=== PATIENT | female | born 1935 | race Caucasian/White ===

== ENCOUNTER → 2017-06-03 | Outpatient (REF) | payer MEDICAID, MEDICARE ==
[2017-06-03 14:19] LABS: FREE T3 3.3 PG/ML (2.2-4.0)
== END ==
LOC: M LAB REF 13:03
DX: E05.90 Thyrotoxicosis, unspecified without thyrotoxic crisis or storm (principal)
CPT/HCPCS: 84481

== ENCOUNTER 2018-11-21 13:35 | Emergency (ER) | payer MEDICARE, MEDICAID, OTHER ==
[~2018-11-21] VITALS: Ht 154.9 cm; Wt 59.5 kg
[2018-11-21] MEDS ORDERED: ALBU8.5H (13:45)
[2018-11-21] MEDS ORDERED: ALEN70TA74 (13:45)
[2018-11-21] MEDS ORDERED: ADV500INH (13:45)
[2018-11-21] MEDS ORDERED: SIMV20TA2 (13:45)
[2018-11-21] MEDS ORDERED: ADACEL/BOOSTRIX VACCINE (DIPHTH/PERTUSS/ACELL/TETANUS)0.5ML SYR (90715) IM ONE (15:30)
--- NOTE | 2018-11-21 15:46 | REP ---
Clinical: Dog bite. Technique: AP and lateral views of the right forearm. Findings: Soft tissue swelling is appreciated without subcutaneous emphysema or foreign body. Osseous structures are intact without evidence for injury. Impression: Soft-tissue swelling. Electronically Signed by Mihir Grey MD 11/21/2018 03:37 P
[2018-11-21] MEDS ORDERED: AUGM875T28 PO (16:16)
[2018-11-21 16:28] VITALS: BP 125/58
== END 2018-11-21 16:29 | disposition home or self-care (01) ==
LOC: M ED 13:35
DX: S51.851A Open bite of right forearm, initial encounter (principal); W54.0XXA Bitten by dog, initial encounter; Y92.89 Other specified places as the place of occurrence of the external cause; J44.9 Chronic obstructive pulmonary disease, unspecified; Z79.899 Other long term (current) drug therapy

== ENCOUNTER 2019-06-27 14:36 | Outpatient (RCR) | payer MEDICAID, MEDICARE, OTHER, SELFPAY ==
[~2019-06-27] VITALS: Ht 154.9 cm; Wt 60.0 kg
[~2019-06-27 14:36] MED LIST: ADV500INH; ALBU8.5H; ALEN70TA74; AUGM875T28 PO; SIMV20TA22
[2019-06-27] MEDS ORDERED: ASPI81TA85 PO (15:43)
[2019-06-27] MEDS ORDERED: ADV500INH INH (15:43)
== END 2019-07-24 ==
LOC: M PR 14:36
PROVIDERS: ATTEND Internal Medicine Pulmonary Disease
DX: J44.9 Chronic obstructive pulmonary disease, unspecified (principal)

== ENCOUNTER 2020-10-26 20:58 | Emergency (ER) | payer MEDICARE, MEDICAID, OTHER ==
[~2020-10-26] VITALS: Ht 154.9 cm; Wt 62.5 kg
[~2020-10-26 20:58] MED LIST changes: +ADV500INH INH; -ALEN70TA74; +ALEN70TA82; +ASPI81TA86 PO
[2020-10-26] MEDS ORDERED: SYMB16INH INH (21:06)
--- NOTE | 2020-10-26 23:25 | REPVR ---
PROCEDURE INFORMATION: Exam: XR Orthopantogram Exam date and time: 10/26/2020 10:45 PM Age: 85 years old Clinical indication: Jaw pain; Additional info: Severe right tmj/mandibular pain TECHNIQUE: Imaging protocol: XR orthopantogram (panoramic view of the upper and lower jaws). COMPARISON: No relevant prior studies available. FINDINGS: Sinuses: No fluid level or opacification involving the imaged paranasal sinuses. Bones/joints: No asymmetric malalignment of the TMJs. There may be degenerative osteoarthrosis changes of the right TMJ particularly. No fracture or destructive process involving the mandible. Patient is edentulous, with 2 dental implants in the paramedian lower mandible Soft tissues: Unremarkable. IMPRESSION: No acute or destructive process. 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 Electronically signed by: Cr Shoemaker On 10/26/2020 23:24:51 PM
[2020-10-26] MEDS ORDERED: KETOROLAC 30 MG/ML 1ML VIAL IV ONE (23:55)
[2020-10-27] MEDS ORDERED: ISOVUE-370 76% 100ML VIAL As Ordered ONE (00:02)
--- NOTE | 2020-10-27 00:29 | REPVR ---
PROCEDURE INFORMATION: Exam: CT Maxillofacial With Contrast Exam date and time: 10/26/2020 12:18 AM Age: 85 years old Clinical indication: Jaw pain; Prior surgery; Surgery date: 1-6 months; Surgery type: Teeth removed; Additional info: Right facial swelling TECHNIQUE: Imaging protocol: Computed tomography images of the face with intravenous contrast. Radiation optimization: All CT scans at this facility use at least one of these dose optimization techniques: automated exposure control; mA and/or kV adjustment per patient size (includes targeted exams where dose is matched to clinical indication); or iterative reconstruction. Contrast material: ISOVUE 370; Contrast volume: 75 ml; Contrast route: INTRAVENOUS (IV); COMPARISON: PX [facility] orthopantogram 10/26/2020 10:38 PM FINDINGS: No focal subcutaneous soft tissue swelling. Parapharyngeal and posterior nasopharynx soft tissue planes are symmetric. No asymmetric enlargement or inflammation of the pharyngeal tonsils. Vascular structures of the neck enhance normally. No abnormally enlarged cervical chain or jugulodigastric lymph nodes. Muscles of mastication and strap muscles of the neck appear normal. Parotid and minor salivary glands are unremarkable. Floor of the mouth and tongue base soft tissues appear normal. Imaged laryngeal structures appear normal. Asymmetric fluid within the right vallecula measuring 7 x 7 x 10 mm Multi-level cervical degenerative disc and articular pillar arthropathy is present. Patient is nearly edentulous, with 2 paramedian mandibular implants present. No abnormal lucency at the interface between the implant and adjacent bone IMPRESSION: No explanation for right facial swelling. No for inflammatory process, mass or fluid collection. Likely incidental fluid within the right vallecula at the hyoid bone level. Electronically signed by: Cr Shoemaker On 10/27/2020 00:28:33 AM
[2020-10-27 02:21] VITALS: BP 131/76
--- NOTE | 2020-10-27 06:15 | ED PDOC ---
Post-Departure Follow-Up ct max fac faxed to dr weber for fu Denisse Hayward MD Oct 27, 2020 06:15
== END 2020-10-27 02:24 | disposition home or self-care (01) ==
LOC: M ED 20:58
DX: M26.601 Right temporomandibular joint disorder, unspecified (principal); E78.5 Hyperlipidemia, unspecified; J44.9 Chronic obstructive pulmonary disease, unspecified; Z79.82 Long term (current) use of aspirin; Z79.899 Other long term (current) drug therapy
CPT/HCPCS: 70355; 70487; 80047; 96374; 99284; J1885; Q9967

== ENCOUNTER → 2020-12-18 | Outpatient (CLI) | payer MEDICARE, MEDICAID ==
[~2020-12-18] MED LIST changes: +SYMB16INH INH
--- NOTE | 2020-12-18 13:59 | REP ---
INDICATION: COPD COMPARISON: None. TECHNIQUE: Standard helical technique without intravenous contrast administration FINDINGS: There is no evidence of mediastinal or hilar adenopathy. There are no pleural or pericardial effusions. Motion artifact obscures the imaged upper abdomen. No gross abnormalities are identified. Chronic changes are seen involving the imaged spine. There is a grade 1 superior endplate compression fracture of L2. Evaluation of the lung mathias shows a spiculated mass in the anterior segment of the left upper lobe which measures3.1 x 1.9 x 1.9 cm. A small asymmetric density is seen in the superior lingula having an extremely dense center consistent with a fiducial marker. Respiratory motion artifact obscures multiple lung base images. There is cylindrical bronchiectasis and lung field hyperexpansion. Scattered parenchymal bulla are also noted. IMPRESSION: 1. Large left upper lobe mass as described above. This is consistent with neoplasm. I have no priors for comparison. PET-CT and or tissue sampling is recommended as per the revised Fleischner society criteria. 2. Chronic lung field changes and other findings as described above. <Electronically signed by Ray Santana > 12/18/20 [id number]
== END ==
LOC: M PLAIMG 12:17
PROVIDERS: ATTEND Internal Medicine Pulmonary Disease
DX: J44.9 Chronic obstructive pulmonary disease, unspecified (principal); R91.8 Other nonspecific abnormal finding of lung field; J47.9 Bronchiectasis, uncomplicated

== ENCOUNTER → 2021-01-20 | Outpatient (CLI) | payer MEDICARE, MEDICAID ==
[2021-01-20 13:23] LABS: PLATELET COUNT, AUTOMATED 175 10^3/uL (150-450)
[2021-01-20 13:46] LABS: PROTHROMBIN TIME 13.6 SECONDS (12.7-14.5)
[2021-01-20 13:47] LABS: PARTIAL THROMBOPLASTIN TIME 37.3 SECONDS (25.9-37.0)
== END ==
LOC: M PLALAB 10:00
PROVIDERS: ATTEND Internal Medicine Pulmonary Disease
DX: R91.1 Solitary pulmonary nodule (principal)

== ENCOUNTER → 2021-01-26 | Outpatient (CLI) | payer MEDICARE, MEDICAID ==
[~2021-01-26] MED LIST changes: +ACET650T61 PO; -ALBU8.5H; +ALBU8.5H INH; +BUDE10.7 INH; +ECOT81TA5 PO; +HOME MED LIST COMPLETE! XX SCH; +LIDOCAINE 1% MDV 20ML VIAL As Ordered ONE; +OMEP1CAP73 PO; -SIMV20TA22; +SIMV20TA22 PO; +SODIUM BICARBONATE 8.4% INJ 50MEQ 50 ML VIAL As Ordered ONE
--- NOTE | 2021-01-26 09:44 | REP ---
INDICATION: POST LEFT LUNG BIOPSY, 1 VIEW, PA INSPIRATION. COMPARISON: Comparison chest x-ray May 14, comparison chest x-ray August 29, 2017. TECHNIQUE: Upright PA chest radiograph. FINDINGS: Patient is status post CT guided needle biopsy on the left. A left perihilar nodule is present. This was the biopsy target. There is a tiny sliver of left apical pleural air indicating a very small post procedure pneumothorax. There is evidence of a hiatal hernia behind the heart. Minimal linear fibrosis is seen in in the bases. IMPRESSION: Tiny left apical post biopsy pneumothorax. Recommend 2 hour follow-up radiograph. <Electronically signed by Kevin Motta > 01/26/21 [id number]
[2021-01-26 11:30] VITALS: BP 119/62
--- NOTE | 2021-01-26 11:52 | REP ---
INDICATION: POST LEFT LUNG PNEUMO, 1 VIEW. COMPARISON: Comparison is made with the initial post biopsy chest x-ray from 01/22 5 a.m.. TECHNIQUE: PA chest x-ray 11:45 a.m.. FINDINGS: There is a tiny sliver of apical pleural air visible at the medial apex. This is decreased in size from the 01/22 5 a.m. film. The chest x-ray is otherwise unchanged. No other complication seen. IMPRESSION: Tiny left apical pneumothorax improved from the earlier film. <Electronically signed by Kevin Motta > 01/26/21 [id number]
--- NOTE | 2021-01-26 15:22 | REP ---
INDICATION: LT UPPER LOBE MASS. COMPARISON: None. TECHNIQUE: The procedure is performed by Nelia Reynolds [facility], under the direct supervision of Dr. Motta. The risks and benefits of the procedure were explained to the patient and informed consent was obtained both orally and written. Directly prior to the start of the procedure, a formal timeout was done in the exam room. The left upper lobe lung mass was localized using CT guidance. Skin was prepped and draped in the usual sterile fashion. Six ml of buffered lidocaine was used as a local anesthetic. FINDINGS: Using CT guidance a 19/20 gauge coaxial needle biopsy system was inserted and advanced into the nodule. Four core biopsy samples were obtained and sent to the lab. CT images obtained directly after the biopsy show showed evidence of a small pneumothorax. The pneumothorax thorax was followed by serial chest x-rays, after the appropriate amount of monitored convalescence the patient was discharged from the department. IMPRESSION: CT-guided left upper lobe lung biopsy. <Electronically signed by Nelia Reynolds > 01/26/21 1505 <Electronically signed by Kevin Motta > 01/26/21 1516
== END ==
LOC: M IRPRO 07:58
PROVIDERS: ATTEND Internal Medicine Pulmonary Disease
DX: C34.12 Malignant neoplasm of upper lobe, left bronchus or lung (principal); J95.811 Postprocedural pneumothorax

== ENCOUNTER → 2021-02-13 | Outpatient (CLI) | payer MEDICARE, MEDICAID ==
[~2021-02-13] MED LIST changes: -HOME MED LIST COMPLETE! XX SCH; -LIDOCAINE 1% MDV 20ML VIAL As Ordered ONE; -SODIUM BICARBONATE 8.4% INJ 50MEQ 50 ML VIAL As Ordered ONE
--- NOTE | 2021-02-13 14:48 | RADONC.CN ---
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 She is s/p biopsy on 01/26/21 and has a PET-CT to complete staging pending on 02/23/21. She has been referred for consideration of SBRT. Diagnosis/Treatment History Oncologic History Referred to pulmonology by Dr. Best Riojas for management of her COPD and history of latent TB. Dr. Silver ordered a CT chest to evaluate her lung mathias done on 12/18/20 which showed a spiculated primary lung lesion in the MARIAH 3 cm in maximal dimension. She was referred for CT biopsy which was done on 01/26/21 with pathology revealing SCC (markers pending). She was deemed inoperable due to her COPD. A PET-CT has been ordered and will be completed on 02/23/21 PFTs 01/02/21 FVC 1.31 FEV1 0.79 FEV/FVC 60% Severe COPD Interval History Janice reports that she has NOGUEIRA and cough, productive of clear to yellow sputum. She has no CP or hemoptysis. She has good appetite and stable weight. She is a and lives alone. No longer smokes. Past Medical History: COPD Latent TB HPL Arthritis Osteoporosis Past Surgical History: Cataracts Tonsillectomy Family History: Father stomach cancer Mother lung cancer Social History: 60 pack year former smoker quit 2018 Does not drink Allergies / Meds Allergies: Coded Allergies: No Known Allergies (Unverified , 11/21/18) Home Meds Reported Medications Acetaminophen (Tylenol Arthritis) 650 Mg Tablet.er, 650 MG PO Q8H PRN for PAIN LEVEL 1-4 01/26/21 Aspirin (Ecotrin) 81 Mg Tablet.dr, 81 MG PO QPM 01/26/21 Budesonide/Glycopyr/Formoterol (Breztri Aerosphere Inhaler) 160 Mcg-9 Mcg-4.8 Mcg/Actuation Hfa.aer.ad, 2 PUFFS INH BID 01/23/21 Omeprazole (Omeprazole) 20 Mg Capsule.dr, 20 MG PO QPM 01/23/21 Albuterol Sulfate (Albuterol Sulfate Hfa) 8.5 Gm Hfa.aer.ad, 2 PUFFS INH QID PRN for SOB/WHEEZING 11/21/18 Simvastatin (Simvastatin) 20 Mg Tablet, 20 MG PO QPM 11/21/18 Review of Systems Constitutional: Denies: Chills, Fatigue, Weight Loss Eyes: Denies: Pain HEENT: Denies: Head Aches Skin: Denies: Rash Pulmonary: Reports: Dyspnea, Cough; Denies: Pleuritic Chest Pain Cardiovascular: Denies: Chest Pain, Edema Gastrointestinal: Denies: Abdominal Pain Musculoskeletal: Reports: Other (Right jaw pain); Denies: Neck pain, Arm pain Neurological: Denies: Weakness, Numbness Psych: Reports: Mood Normal Vital Signs Ht 62" Wt 139 lbs BMI 26 T 97.7 P 89 RR 18 BP 124/71 O2 94% Pain 0 Fatigue 0 General Exam: Alert, Cooperative, No Acute Distress Eye Exam: PERRLA, EOMI Neck Exam: Supple Chest Exam: Clear to auscultation, Wheezing (Throughout faint wheezes) Heart Exam: Rate Normal, Regular Rhythm Abdomen Exam: Soft Extremity Exam: Negative: Edema Neuro Exam: Normal Gait, Normal Speech, Cranial Nerves 3-12 NL Psych Exam: Mental status NL Diagnostic and Laboratory Diagnostic Review Radiologic images, relevant labs and pathology reports were personally reviewed and discussed with Ms. Arce. Assessment and Plan Impression Ms. Arce is a 85 year old female former smoker with a recently diagnosed [id number] stage IA3 NSCLC of the MARIAH. She is s/p biopsy on 01/26/21 and has a PET- CT to complete staging pending on 02/23/21. She has been referred for consideration of SBRT. Stage MARIAH NSCLC [id number] stage IA3 Performance Status ECOG 1 Plan We had an extensive discussion with Ms. Arce regarding the diagnosis at hand and available therapeutic options. I reviewed her imaging with her which shows a 3 cm solitary MARIAH lesion. This is a good SBRT target given its peripheral location. She has severe COPD and is thus not a surgical candidate. For treatment I recommend SBRT 60 Gy in 5 fractions with 4DCT/ITV/DCA planning. I discussed that I will await the PET-CT (which will complete staging) before proceeding with simulation. I will call her with the results once the study is obtained. I think the likelihood of occult stephanie metastasis is low, but entirely worth vetting before we proceed. We discussed the logistics of receiving radiation therapy in detail including the need for a 1-time planning session. This can occur the same week as the PET- CT. We reviewed the side effects of treatment including fatigue, and 5-10% risk of clinical pneumonitis, and late fibrosis. After discussing the risks, benefits and alternatives to radiation therapy, Ms. Arce was amenable to pursuing radiotherapy. All questions were answered to the patient's satisfaction. We instructed the patient that if there were any questions,concerns or changes in clinical status in the interim to contact us. Recommendations SBRT 60 Gy in 5 fractions as described above Simulation week of 02/23/21, after PET-CT Billing Statement Total time of [46] minutes was spent preparing for the visit [3], obtaining HPI [10], examining the patient [3], reviewing diagnostic tests [4], discussing management options [16], coordinating care [2], and writing this note [8]. KEITH SIMMS MD Feb 13, 2021 14:48
== END ==
LOC: M ONCR 12:47
PROVIDERS: ATTEND General Practice
DX: C34.12 Malignant neoplasm of upper lobe, left bronchus or lung (principal); J44.9 Chronic obstructive pulmonary disease, unspecified; Z22.7 Latent tuberculosis; Z79.82 Long term (current) use of aspirin; Z79.899 Other long term (current) drug therapy; Z87.891 Personal history of nicotine dependence

== ENCOUNTER → 2021-02-23 | Outpatient (CLI) | payer MEDICARE, MEDICAID ==
--- NOTE | 2021-02-24 09:04 | REP ---
INDICATION: INITIAL STAGING MALIGNANT NEOPLASM C34.12. COMPARISON: Prior CT of the chest 12/18/2020. No prior PET CTs for comparison. TECHNIQUE: After the intravenous administration of 8.90 mCi of FDG 18 triplane whole-body PET-CT was performed from the skull base to the mid thigh. FINDINGS: The spiculated lesion seen in the left lung upper lobe is hypermetabolic with a maximal SUV value of 9.32. There is a focus of hypermetabolic activity seen in the left latissimus Gonzalez muscle at the level of the inferior tip of the medial border of the scapula. This is likely secondary to increased uptake from insufficient post injection resting. There are no other areas of abnormal hypermetabolic activity seen in the neck, chest, abdomen, or pelvis. IMPRESSION: The spiculated lung lesions seen the left upper lobe is hypermetabolic as described above consistent with neoplasm. <Electronically signed by Ray Santana > 02/24/21 0900
== END ==
LOC: M PLARAD 08:48
PROVIDERS: ATTEND Internal Medicine Pulmonary Disease
DX: C34.12 Malignant neoplasm of upper lobe, left bronchus or lung (principal)
CPT/HCPCS: 78815; A9552

== ENCOUNTER 2021-03-13 12:10 | Outpatient (RCR) | payer MEDICARE, MEDICAID | END 2021-03-24 | LOC: M ONCR 12:10 | PROVIDERS: ATTEND General Practice | DX: C34.12 Malignant neoplasm of upper lobe, left bronchus or lung (principal) ==

== ENCOUNTER → 2021-06-03 | Outpatient (CLI) | payer MEDICARE, MEDICAID ==
[2021-06-03 14:06] LABS: ALBUMIN 3.7 GM/DL (3.2-5.2); ALT/SGPT 21 U/L (12-78); BILIRUBIN,TOTAL 0.4 MG/DL (0.2-1.0); BLOOD UREA NITROGEN 19 MG/DL (7-18); CALCIUM LEVEL 9.3 MG/DL (8.8-10.2); CARBON DIOXIDE LEVEL 26 MEQ/L (21-32); CHLORIDE LEVEL 109 MEQ/L (98-107); CREATININE FOR GFR 0.94 MG/DL (0.55-1.30); GLOMERULAR FILTRATION RATE > 60.0 (>32); GLUCOSE, FASTING 81 MG/DL (70-100); SODIUM LEVEL 143 MEQ/L (136-145); TOTAL PROTEIN 7.3 GM/DL (6.4-8.2)
== END ==
LOC: M ONCR 13:10
PROVIDERS: ATTEND General Practice
DX: C34.12 Malignant neoplasm of upper lobe, left bronchus or lung (principal)

== ENCOUNTER → 2021-06-08 | Outpatient (CLI) | payer MEDICARE, MEDICAID ==
[~2021-06-08] MED LIST changes: +ISOVUE-370 76% 100ML VIAL As Ordered ONE
== END ==
LOC: M RAD 14:55
PROVIDERS: ATTEND General Practice
DX: C34.12 Malignant neoplasm of upper lobe, left bronchus or lung (principal); J43.9 Emphysema, unspecified
CPT/HCPCS: 71260; Q9967

== ENCOUNTER → 2021-07-01 | Outpatient (CLI) | payer MEDICARE, MEDICAID ==
[~2021-07-01] MED LIST changes: -ISOVUE-370 76% 100ML VIAL As Ordered ONE
== END ==
LOC: M ONCR 09:48
PROVIDERS: ATTEND General Practice
DX: C34.12 Malignant neoplasm of upper lobe, left bronchus or lung (principal); J44.9 Chronic obstructive pulmonary disease, unspecified; Z79.82 Long term (current) use of aspirin; Z79.899 Other long term (current) drug therapy; Z87.891 Personal history of nicotine dependence; Z92.3 Personal history of irradiation

== ENCOUNTER → 2021-10-08 | Outpatient (CLI) | payer MEDICARE, MEDICAID ==
[~2021-10-08] MED LIST changes: +GABA-1171 PO
== END ==
LOC: M WUC 10:19
PROVIDERS: ATTEND Nurse Practitioner Adult Health
DX: R07.89 Other chest pain (principal); R91.8 Other nonspecific abnormal finding of lung field; Z92.3 Personal history of irradiation

== ENCOUNTER 2021-11-24 21:02 | Inpatient (IN) | payer MEDICARE, MEDICAID ==
[~2021-11-24] VITALS: Ht 157.5 cm; Wt 65.0 kg
[2021-11-24 21:28] LABS: BASO % 0.6 % (0.0-1.0); EOS # 0.2 10^3/uL (0.0-0.5); EOS % 4.7 % (0.0-3.0); HEMOGLOBIN 12.1 g/dl (12.0-15.5); LYMPH # 1.1 10^3/uL (1.5-5.0); LYMPH % 20.7 % (24.0-44.0); MEAN CORPUSCULAR HEMOGLOBIN 29.9 pg (27.0-33.0); MEAN CORPUSCULAR HGB CONC 32.7 g/dl (32.0-36.5); MEAN CORPUSCULAR VOLUME 91.4 fl (80.0-96.0); MONO # 0.6 10^3/uL (0.0-0.8); NEUTROPHILS # 3.2 10^3/uL (1.5-8.5); NEUTROPHILS % 62.4 % (36.0-66.0); PLATELET COUNT, AUTOMATED 189 10^3/uL (150-450); RED BLOOD COUNT 4.05 10^6/uL (4.00-5.40); WHITE BLOOD COUNT 5.1 10^3/uL (4.0-10.0)
[2021-11-24 21:37] LABS: INR 0.97; PROTHROMBIN TIME 13.3 SECONDS (12.7-14.5)
[2021-11-24 21:38] LABS: PARTIAL THROMBOPLASTIN TIME 32.5 SECONDS (25.9-37.0)
[2021-11-24 21:47] LABS: ALBUMIN 3.3 GM/DL (3.2-5.2); ALT/SGPT 21 U/L (12-78); BILIRUBIN,DIRECT < 0.1 MG/DL (0.0-0.2); BILIRUBIN,TOTAL 0.3 MG/DL (0.2-1.0); BLOOD UREA NITROGEN 17 MG/DL (7-18); CALCIUM LEVEL 9.1 MG/DL (8.8-10.2); CARBON DIOXIDE LEVEL 24 MEQ/L (21-32); CHLORIDE LEVEL 111 MEQ/L (98-107); CREATININE FOR GFR 1.01 MG/DL (0.55-1.30); GLOMERULAR FILTRATION RATE 55.6 (>32); GLUCOSE, FASTING 95 MG/DL (70-100); SODIUM LEVEL 142 MEQ/L (136-145)
[2021-11-24 21:48] LABS: MB/CK RELATIVE INDEX 1.6 (< OR =4)
[2021-11-24] MEDS: fentaNYL 100 MCG/2 ML INJECTION IV PRN ×2 (21:54→22:28)
[2021-11-24 22:06] LABS: RSV AMPLIFICATION NEGATIVE (NEGATIVE)
[2021-11-24] MEDS ORDERED: GABA-1171 PO (23:51)
[2021-11-24] MEDS ORDERED: ASPI-161 PO (23:51)
[2021-11-24] MEDS ORDERED: MULTCHW12 PO (23:51)
[2021-11-24] MEDS ORDERED: COMBAER6 INH (23:51)
[2021-11-24] MEDS ORDERED: HOME MED LIST COMPLETE! XX SCH (23:55)
[2021-11-25] VITALS (8 sets, daily range): BP systolic 118–160; BP diastolic 66–88
[2021-11-25] MEDS ORDERED: HEPARIN SOD (PORCINE) 5000UNITS/ML 1ML VIAL/SYRINGE SC ONE (00:25)
[2021-11-25] MEDS: LR 1,000 ML IV SCH ×2 (00:25→13:45)
[2021-11-25] MEDS: HYDROMORPHONE HCL 0.5 MG/ 0.5 ML SYRINGE (J1170 PER 1) IV PRN ×6 (00:51→22:01)
[2021-11-25 06:34] LABS: BASO % 0.2 % (0.0-1.0); EOS # 0.1 10^3/uL (0.0-0.5); EOS % 0.7 % (0.0-3.0); HEMATOCRIT 34.2 % (36.0-47.0); HEMOGLOBIN 10.9 g/dl (12.0-15.5); LYMPH # 0.6 10^3/uL (1.5-5.0); LYMPH % 7.1 % (24.0-44.0); MEAN CORPUSCULAR HEMOGLOBIN 29.1 pg (27.0-33.0); MEAN CORPUSCULAR HGB CONC 31.9 g/dl (32.0-36.5); MEAN CORPUSCULAR VOLUME 91.2 fl (80.0-96.0); MONO # 0.6 10^3/uL (0.0-0.8); MONO % 6.5 % (2.0-8.0); NEUTROPHILS # 7.5 10^3/uL (1.5-8.5); PLATELET COUNT, AUTOMATED 164 10^3/uL (150-450); RED BLOOD COUNT 3.75 10^6/uL (4.00-5.40); WHITE BLOOD COUNT 8.8 10^3/uL (4.0-10.0)
[2021-11-25 06:47] LABS: BLOOD UREA NITROGEN 17 MG/DL (7-18); CALCIUM LEVEL 8.6 MG/DL (8.8-10.2); CARBON DIOXIDE LEVEL 26 MEQ/L (21-32); CHLORIDE LEVEL 108 MEQ/L (98-107); CREATININE FOR GFR 0.76 MG/DL (0.55-1.30); GLOMERULAR FILTRATION RATE > 60.0 (>32); GLUCOSE, FASTING 131 MG/DL (70-100); POTASSIUM SERUM 4.1 MEQ/L (3.5-5.1); SODIUM LEVEL 140 MEQ/L (136-145)
[2021-11-25] MEDS: TIOTROPIUM INHALER/CAPSULE (SPIRIVA) INH SCH (08:00)
[2021-11-25] MEDS: PANTOPRAZOLE 40MG VIAL IV SCH (09:28)
[2021-11-25] MEDS ORDERED: IPRATROPIUM 0.5MG/ALBUTEROL 2.5MG INH SOL UD 3ML (DUONEB) NEB PRN (10:20)
[2021-11-25] MEDS: SYMBICORT 160/4.5MCG INHALER 6GM INH SCH ×2 (10:36→19:16)
[2021-11-25] MEDS ORDERED: ONDANSETRON 4MG 2ML VIAL IV PRN ×3 (15:45→23:30)
[2021-11-25] MEDS ORDERED: MIDAZOLAM INJ 2MG/2ML VIAL (J2250 PER 1MG) As Ordered ONE (16:14)
[2021-11-25] MEDS ORDERED: fentaNYL 100 MCG/2 ML INJECTION As Ordered ONE (16:14)
[2021-11-25] MEDS ORDERED: propofoL 200 MG/20 ML VIAL As Ordered ONE ×2 (16:22→18:45)
[2021-11-25] MEDS ORDERED: LIDOCAINE 2% 100MG/5ML SDV (FOR ANES.) As Ordered ONE (16:23)
[2021-11-25] MEDS ORDERED: KETAMINE HCL 200 MG/20 ML VIAL As Ordered ONE (17:03)
[2021-11-25] MEDS ORDERED: ceFAZolin 2 GM/D5W 50 ML IV BAG (J0690 PER 500MG) As Ordered ONE (17:04)
[2021-11-25] MEDS ORDERED: TRANEXAMIC ACID 100 MG/ML 10ML VIAL As Ordered ONE (17:04)
[2021-11-25] MEDS ORDERED: PHENYLephrine 500MCG 5ML (100MCG/ML) SYRINGE As Ordered ONE ×2 (17:28→18:54)
[2021-11-25] MEDS ORDERED: ePHEDrine SULFATE 25 MG/5 ML(5MG/ML) SYRINGE As Ordered ONE ×2 (18:11→18:54)
[2021-11-25] MEDS ORDERED: ONDANSETRON 4MG 2ML VIAL As Ordered ONE (18:16)
[2021-11-25] MEDS ORDERED: ACETAMINOPHEN 1000MG 100ML IV BTL (OFIRMEV) (J0131 PER 10MG) As Ordered ONE (18:18)
[2021-11-25] MEDS ORDERED: fentaNYL 100 MCG/2 ML INJECTION IV PRN (19:30)
[2021-11-25] MEDS ORDERED: MORPHINE 2 MG/ML 1ML VIAL IV PRN (19:30)
[2021-11-25] MEDS ORDERED: LR 1,000 ML IV SCH (19:30)
[2021-11-25] MEDS ORDERED: oxyCODONE 5MG TAB PO PRN (19:30)
[2021-11-25] MEDS ORDERED: PERCOCET 5MG/325MG TAB PO PRN (23:30)
[2021-11-25] MEDS ORDERED: ACETAMINOPHEN TAB 650MG DOSE (2X325MG) PO PRN (23:30)
[2021-11-25] MEDS: PERCOCET 5MG/325MG TAB PO PRN (23:50)
[2021-11-26] VITALS (7 sets, daily range): BP systolic 116–126; BP diastolic 64–80; O2SAT 93
[2021-11-26] MEDS: LR 1,000 ML IV SCH ×2 (02:16→09:55)
[2021-11-26] MEDS: ceFAZolin SOD 2 GM in IV 1 EA IV SCH ×2 (02:23→09:54)
[2021-11-26] MEDS: PERCOCET 5MG/325MG TAB PO PRN (05:54)
[2021-11-26 06:57] LABS: HEMATOCRIT 32.2 % (36.0-47.0); MEAN CORPUSCULAR HEMOGLOBIN 28.9 pg (27.0-33.0); MEAN CORPUSCULAR HGB CONC 31.1 g/dl (32.0-36.5); MEAN CORPUSCULAR VOLUME 93.1 fl (80.0-96.0); PLATELET COUNT, AUTOMATED 141 10^3/uL (150-450); RED BLOOD COUNT 3.46 10^6/uL (4.00-5.40); WHITE BLOOD COUNT 7.1 10^3/uL (4.0-10.0)
[2021-11-26 07:22] LABS: BLOOD UREA NITROGEN 15 MG/DL (7-18); CALCIUM LEVEL 8.1 MG/DL (8.8-10.2); CARBON DIOXIDE LEVEL 25 MEQ/L (21-32); CHLORIDE LEVEL 105 MEQ/L (98-107); CREATININE FOR GFR 0.69 MG/DL (0.55-1.30); GLOMERULAR FILTRATION RATE > 60.0 (>32); GLUCOSE, FASTING 111 MG/DL (70-100); POTASSIUM SERUM 4.1 MEQ/L (3.5-5.1); SODIUM LEVEL 136 MEQ/L (136-145)
[2021-11-26] MEDS: TIOTROPIUM INHALER/CAPSULE (SPIRIVA) INH SCH (07:40)
[2021-11-26] MEDS: SYMBICORT 160/4.5MCG INHALER 6GM INH SCH ×2 (07:40→19:36)
[2021-11-26] MEDS: traMADol 50 MG TAB PO PRN ×3 (09:54→22:05)
[2021-11-26] MEDS: ASPIRIN 81MG ENTERIC TABLET PO SCH ×2 (09:54→20:36)
[2021-11-26] MEDS: PANTOPRAZOLE 40MG VIAL IV SCH (09:54)
[2021-11-26] MEDS: CEPACOL LOZENGE PO PRN ×2 (18:36→20:36)
[2021-11-27] VITALS (7 sets, daily range): BP systolic 109–116; BP diastolic 61–66; O2SAT 92–93
[2021-11-27 06:53] LABS: HEMATOCRIT 29.2 % (36.0-47.0); HEMOGLOBIN 9.4 g/dl (12.0-15.5); MEAN CORPUSCULAR HEMOGLOBIN 30.1 pg (27.0-33.0); MEAN CORPUSCULAR HGB CONC 32.2 g/dl (32.0-36.5); MEAN CORPUSCULAR VOLUME 93.6 fl (80.0-96.0); PLATELET COUNT, AUTOMATED 129 10^3/uL (150-450); RED BLOOD COUNT 3.12 10^6/uL (4.00-5.40); WHITE BLOOD COUNT 7.1 10^3/uL (4.0-10.0)
[2021-11-27 07:38] LABS: BLOOD UREA NITROGEN 16 MG/DL (7-18); CALCIUM LEVEL 8.3 MG/DL (8.8-10.2); CARBON DIOXIDE LEVEL 28 MEQ/L (21-32); CHLORIDE LEVEL 103 MEQ/L (98-107); CREATININE FOR GFR 0.65 MG/DL (0.55-1.30); GLOMERULAR FILTRATION RATE > 60.0 (>32); GLUCOSE, FASTING 93 MG/DL (70-100); POTASSIUM SERUM 4.6 MEQ/L (3.5-5.1); SODIUM LEVEL 137 MEQ/L (136-145)
[2021-11-27] MEDS: TIOTROPIUM INHALER/CAPSULE (SPIRIVA) INH SCH (08:01)
[2021-11-27] MEDS: SYMBICORT 160/4.5MCG INHALER 6GM INH SCH ×2 (08:01→19:26)
[2021-11-27] MEDS ORDERED: ANALGESIC BALM CRM 3OZ TOP PRN (08:50)
[2021-11-27] MEDS: traMADol 50 MG TAB PO PRN ×2 (09:44→20:28)
[2021-11-27] MEDS: ASPIRIN 81MG ENTERIC TABLET PO SCH ×2 (09:45→20:27)
[2021-11-27] MEDS: PANTOPRAZOLE 40MG TAB (PROTONIX) PO SCH (09:45)
[2021-11-28 01:36] VITALS: BP 110/67
[2021-11-28 05:41] VITALS: BP 108/65
[2021-11-28 07:23] LABS: HEMATOCRIT 29.1 % (36.0-47.0); HEMOGLOBIN 9.2 g/dl (12.0-15.5); MEAN CORPUSCULAR HEMOGLOBIN 29.3 pg (27.0-33.0); MEAN CORPUSCULAR HGB CONC 31.6 g/dl (32.0-36.5); MEAN CORPUSCULAR VOLUME 92.7 fl (80.0-96.0); PLATELET COUNT, AUTOMATED 136 10^3/uL (150-450); RED BLOOD COUNT 3.14 10^6/uL (4.00-5.40); WHITE BLOOD COUNT 6.3 10^3/uL (4.0-10.0)
[2021-11-28 07:41] VITALS: O2SAT 95
[2021-11-28] MEDS: TIOTROPIUM INHALER/CAPSULE (SPIRIVA) INH SCH (07:41)
[2021-11-28] MEDS: SYMBICORT 160/4.5MCG INHALER 6GM INH SCH ×2 (07:41→19:22)
[2021-11-28 07:59] LABS: BLOOD UREA NITROGEN 17 MG/DL (7-18); CALCIUM LEVEL 8.2 MG/DL (8.8-10.2); CARBON DIOXIDE LEVEL 30 MEQ/L (21-32); CHLORIDE LEVEL 102 MEQ/L (98-107); CREATININE FOR GFR 0.64 MG/DL (0.55-1.30); GLOMERULAR FILTRATION RATE > 60.0 (>32); GLUCOSE, FASTING 93 MG/DL (70-100); POTASSIUM SERUM 4.2 MEQ/L (3.5-5.1); SODIUM LEVEL 137 MEQ/L (136-145)
[2021-11-28] MEDS: ASPIRIN 81MG ENTERIC TABLET PO SCH ×2 (08:25→21:00)
[2021-11-28] MEDS: PANTOPRAZOLE 40MG TAB (PROTONIX) PO SCH (08:25)
[2021-11-28] MEDS: traMADol 50 MG TAB PO PRN ×2 (08:34→21:01)
[2021-11-28 10:00] VITALS: BP 110/64
[2021-11-28 14:00] VITALS: BP 107/65
[2021-11-28 21:07] VITALS: BP 133/70
[2021-11-29 02:25] VITALS: BP 123/72
[2021-11-29 06:25] VITALS: BP 126/74
[2021-11-29 06:49] LABS: HEMATOCRIT 26.9 % (36.0-47.0); HEMOGLOBIN 8.6 g/dl (12.0-15.5); MEAN CORPUSCULAR HEMOGLOBIN 29.3 pg (27.0-33.0); MEAN CORPUSCULAR VOLUME 91.5 fl (80.0-96.0); PLATELET COUNT, AUTOMATED 145 10^3/uL (150-450); RED BLOOD COUNT 2.94 10^6/uL (4.00-5.40); WHITE BLOOD COUNT 5.7 10^3/uL (4.0-10.0)
[2021-11-29] MEDS: SYMBICORT 160/4.5MCG INHALER 6GM INH SCH ×2 (07:15→19:55)
[2021-11-29] MEDS: TIOTROPIUM INHALER/CAPSULE (SPIRIVA) INH SCH (07:15)
[2021-11-29 07:23] LABS: BLOOD UREA NITROGEN 18 MG/DL (7-18); CARBON DIOXIDE LEVEL 31 MEQ/L (21-32); CHLORIDE LEVEL 103 MEQ/L (98-107); CREATININE FOR GFR 0.66 MG/DL (0.55-1.30); GLOMERULAR FILTRATION RATE > 60.0 (>32); GLUCOSE, FASTING 99 MG/DL (70-100); SODIUM LEVEL 138 MEQ/L (136-145)
[2021-11-29] MEDS ORDERED: MIRALAX *UNIT DOSE* 17GM PACKET PO PRN (07:30)
[2021-11-29] MEDS: PANTOPRAZOLE 40MG TAB (PROTONIX) PO SCH (08:46)
[2021-11-29] MEDS: DOCUSATE SODIUM 100MG CAPSULE PO SCH ×2 (08:46→21:14)
[2021-11-29 10:00] VITALS: BP 106/65
[2021-11-29 14:00] VITALS: BP 97/66
[2021-11-29 14:55] VITALS: BP 118/72
[2021-11-29 18:10] LABS: NT-PRO BNP 2552 PG/ML (<450)
[2021-11-29] MEDS: traMADol 50 MG TAB PO PRN (21:15)
[2021-11-29 22:00] VITALS: BP 119/73
[2021-11-30 02:00] VITALS: BP 124/75
[2021-11-30 06:00] VITALS: BP 110/59
[2021-11-30 07:59] LABS: HEMATOCRIT 28.8 % (36.0-47.0); HEMOGLOBIN 9.4 g/dl (12.0-15.5); MEAN CORPUSCULAR HEMOGLOBIN 29.5 pg (27.0-33.0); MEAN CORPUSCULAR HGB CONC 32.6 g/dl (32.0-36.5); MEAN CORPUSCULAR VOLUME 90.3 fl (80.0-96.0); PLATELET COUNT, AUTOMATED 188 10^3/uL (150-450); RED BLOOD COUNT 3.19 10^6/uL (4.00-5.40); WHITE BLOOD COUNT 5.2 10^3/uL (4.0-10.0)
[2021-11-30] MEDS: SYMBICORT 160/4.5MCG INHALER 6GM INH SCH (08:17)
[2021-11-30] MEDS: TIOTROPIUM INHALER/CAPSULE (SPIRIVA) INH SCH (08:20)
[2021-11-30 08:26] LABS: BLOOD UREA NITROGEN 19 MG/DL (7-18); CALCIUM LEVEL 8.2 MG/DL (8.8-10.2); CARBON DIOXIDE LEVEL 28 MEQ/L (21-32); CHLORIDE LEVEL 104 MEQ/L (98-107); CREATININE FOR GFR 0.65 MG/DL (0.55-1.30); GLOMERULAR FILTRATION RATE > 60.0 (>32); GLUCOSE, FASTING 98 MG/DL (70-100); POTASSIUM SERUM 3.8 MEQ/L (3.5-5.1); SODIUM LEVEL 138 MEQ/L (136-145)
[2021-11-30] MEDS ORDERED: TRAM50TA2 PO (09:43)
[2021-11-30] MEDS ORDERED: COLA100C5 PO (09:43)
[2021-11-30] MEDS: DOCUSATE SODIUM 100MG CAPSULE PO SCH (09:46)
[2021-11-30] MEDS: PANTOPRAZOLE 40MG TAB (PROTONIX) PO SCH (09:46)
== END 2021-11-30 12:10 | DRG 482 ==
LOC: EDBD 21:02 → M ED 21:02 → M ED INP 11-25 00:24 → ENRESERV 11-25 14:00 → M MS5PR 11-25 15:30
PROVIDERS: ADMIT Internal Medicine; ATTEND Internal Medicine
PROC: 0QS706Z Reposition Left Upper Femur with Intramedullary Internal Fixation Device, Open Approach (ICD-10-PCS; principal; 2021-11-25 16:00)
DX: S72.145A Nondisplaced intertrochanteric fracture of left femur, initial encounter for closed fracture (principal); J44.9 Chronic obstructive pulmonary disease, unspecified; K21.9 Gastro-esophageal reflux disease without esophagitis; M81.0 Age-related osteoporosis without current pathological fracture; Z79.82 Long term (current) use of aspirin; Z79.899 Other long term (current) drug therapy; Z92.3 Personal history of irradiation; Z87.891 Personal history of nicotine dependence; E78.5 Hyperlipidemia, unspecified; W18.30XA Fall on same level, unspecified, initial encounter; Y92.009 Unspecified place in unspecified non-institutional (private) residence as the place of occurrence of the external cause; Z85.118 Personal history of other malignant neoplasm of bronchus and lung

== ENCOUNTER → 2021-12-01 | Outpatient (REF) ==
[~2021-12-01] MED LIST changes: +ASPI-161 PO; +COLA100C5 PO; +COMBAER6 INH; +MULTCHW12 PO; +TRAM50TA2 PO
[2021-12-01 08:24] LABS: HEMATOCRIT 28.1 % (36.0-47.0); HEMOGLOBIN 9.1 g/dl (12.0-15.5); MEAN CORPUSCULAR HEMOGLOBIN 29.8 pg (27.0-33.0); MEAN CORPUSCULAR HGB CONC 32.4 g/dl (32.0-36.5); MEAN CORPUSCULAR VOLUME 92.1 fl (80.0-96.0); PLATELET COUNT, AUTOMATED 206 10^3/uL (150-450); RED BLOOD COUNT 3.05 10^6/uL (4.00-5.40); WHITE BLOOD COUNT 5.3 10^3/uL (4.0-10.0)
[2021-12-01 08:50] LABS: BLOOD UREA NITROGEN 18 MG/DL (7-18); CALCIUM LEVEL 8.1 MG/DL (8.8-10.2); CARBON DIOXIDE LEVEL 26 MEQ/L (21-32); CHLORIDE LEVEL 108 MEQ/L (98-107); CREATININE FOR GFR 0.74 MG/DL (0.55-1.30); GLOMERULAR FILTRATION RATE > 60.0 (>32); GLUCOSE, FASTING 102 MG/DL (70-100); POTASSIUM SERUM 4.1 MEQ/L (3.5-5.1); SODIUM LEVEL 142 MEQ/L (136-145)
== END ==
LOC: SKLAB4 08:16
PROVIDERS: ATTEND Nurse Practitioner Family
DX: J44.9 Chronic obstructive pulmonary disease, unspecified (principal)

== ENCOUNTER 2021-12-06 19:18 | Emergency (ER) | payer MEDICARE, MEDICAID ==
[~2021-12-06] VITALS: Ht 157.5 cm; Wt 60.9 kg
[2021-12-06] MEDS ORDERED: diphenhydrAMINE 50MG/ML VIAL (J1200) IV ONE (20:05)
[2021-12-06] MEDS ORDERED: FAMOTIDINE 20MG/2ML VIAL IVP ONE (20:05)
[2021-12-06] MEDS ORDERED: methylPREDNISolone 125MG 2ML VIAL IV ONE (20:05)
[2021-12-06] MEDS ORDERED: PRED20TA PO (23:28)
[2021-12-06 23:46] VITALS: BP 124/80
== END 2021-12-06 23:55 | disposition home or self-care (01) ==
LOC: EDBD 19:18 → M ED 19:18
DX: T78.40XA Allergy, unspecified, initial encounter (principal); I25.10 Atherosclerotic heart disease of native coronary artery without angina pectoris; K21.9 Gastro-esophageal reflux disease without esophagitis; Z79.82 Long term (current) use of aspirin; Z79.899 Other long term (current) drug therapy
CPT/HCPCS: 96374; 96375; 99284; J1200; J2930

== ENCOUNTER → 2021-12-08 | Outpatient (REF) | payer MEDICARE ==
[~2021-12-08] MED LIST changes: +PRED20TA PO
[2021-12-08 09:55] LABS: HEMATOCRIT 28.7 % (36.0-47.0); HEMOGLOBIN 8.9 g/dl (12.0-15.5); MEAN CORPUSCULAR HEMOGLOBIN 29.6 pg (27.0-33.0); MEAN CORPUSCULAR VOLUME 95.3 fl (80.0-96.0); PLATELET COUNT, AUTOMATED 311 10^3/uL (150-450); RED BLOOD COUNT 3.01 10^6/uL (4.00-5.40); WHITE BLOOD COUNT 9.6 10^3/uL (4.0-10.0)
[2021-12-08 11:00] LABS: ALBUMIN 2.6 GM/DL (3.2-5.2); ALT/SGPT 36 U/L (12-78); BILIRUBIN,TOTAL 0.5 MG/DL (0.2-1.0); BLOOD UREA NITROGEN 23 MG/DL (7-18); CALCIUM LEVEL 8.3 MG/DL (8.8-10.2); CARBON DIOXIDE LEVEL 25 MEQ/L (21-32); CHLORIDE LEVEL 112 MEQ/L (98-107); CREATININE FOR GFR 0.82 MG/DL (0.55-1.30); GLOMERULAR FILTRATION RATE > 60.0 (>32); GLUCOSE, FASTING 90 MG/DL (70-100); POTASSIUM SERUM 3.9 MEQ/L (3.5-5.1); SODIUM LEVEL 144 MEQ/L (136-145); TOTAL PROTEIN 5.5 GM/DL (6.4-8.2)
== END ==
LOC: SKLAB4 08:00
PROVIDERS: ATTEND Nurse Practitioner Family
DX: J44.9 Chronic obstructive pulmonary disease, unspecified (principal)

== ENCOUNTER → 2021-12-09 | Outpatient (CLI) | payer MEDICARE, MEDICAID | LOC: M SOG 07:58 | PROVIDERS: ATTEND Orthopaedic Surgery Adult Reconstructive Orthopaedic Surgery | DX: Z47.89 Encounter for other orthopedic aftercare (principal) ==

== ENCOUNTER → 2021-12-15 | Outpatient (REF) | payer MEDICARE ==
[2021-12-15 10:22] LABS: HEMATOCRIT 32.3 % (36.0-47.0); HEMOGLOBIN 10.2 g/dl (12.0-15.5); MEAN CORPUSCULAR HEMOGLOBIN 29.6 pg (27.0-33.0); MEAN CORPUSCULAR HGB CONC 31.6 g/dl (32.0-36.5); MEAN CORPUSCULAR VOLUME 93.6 fl (80.0-96.0); PLATELET COUNT, AUTOMATED 270 10^3/uL (150-450); RED BLOOD COUNT 3.45 10^6/uL (4.00-5.40); WHITE BLOOD COUNT 6.6 10^3/uL (4.0-10.0)
[2021-12-15 10:58] LABS: BLOOD UREA NITROGEN 21 MG/DL (7-18); CALCIUM LEVEL 8.7 MG/DL (8.8-10.2); CARBON DIOXIDE LEVEL 27 MEQ/L (21-32); CHLORIDE LEVEL 108 MEQ/L (98-107); CREATININE FOR GFR 0.59 MG/DL (0.55-1.30); GLOMERULAR FILTRATION RATE > 60.0 (>32); GLUCOSE, FASTING 126 MG/DL (70-100); POTASSIUM SERUM 4.2 MEQ/L (3.5-5.1); SODIUM LEVEL 140 MEQ/L (136-145)
== END ==
LOC: SKLAB4 08:00
PROVIDERS: ATTEND Nurse Practitioner Family
DX: J44.9 Chronic obstructive pulmonary disease, unspecified (principal)

== ENCOUNTER → 2021-12-21 | Outpatient (REF) | LOC: SKLAB4 20:02 | PROVIDERS: ATTEND Internal Medicine | DX: U07.1 COVID-19 (principal); R05.9 Cough, unspecified ==

== ENCOUNTER → 2021-12-25 | Outpatient (CLI) | payer MEDICARE, MEDICAID | LOC: M RAD 12:55 | PROVIDERS: ATTEND General Practice | DX: C34.12 Malignant neoplasm of upper lobe, left bronchus or lung (principal); J44.9 Chronic obstructive pulmonary disease, unspecified ==

== ENCOUNTER → 2021-12-31 | Outpatient (CLI) | payer MEDICARE, MEDICAID | LOC: M ONCR 10:42 | PROVIDERS: ATTEND General Practice | DX: Z08 Encounter for follow-up examination after completed treatment for malignant neoplasm (principal); Z85.118 Personal history of other malignant neoplasm of bronchus and lung; J44.9 Chronic obstructive pulmonary disease, unspecified; Z79.51 Long term (current) use of inhaled steroids; Z79.82 Long term (current) use of aspirin; Z79.899 Other long term (current) drug therapy; Z86.15 Personal history of latent tuberculosis infection; Z87.891 Personal history of nicotine dependence; Z92.3 Personal history of irradiation ==

== ENCOUNTER → 2022-01-06 | Outpatient (CLI) | payer MEDICARE, MEDICAID | LOC: M SOG 08:27 | PROVIDERS: ATTEND Orthopaedic Surgery Adult Reconstructive Orthopaedic Surgery | DX: M25.552 Pain in left hip (principal); S72.002D Fracture of unspecified part of neck of left femur, subsequent encounter for closed fracture with routine healing ==

== ENCOUNTER → 2022-03-05 | Outpatient (CLI) | payer MEDICARE, MEDICAID | LOC: M SOG 08:08 | PROVIDERS: ATTEND Orthopaedic Surgery Adult Reconstructive Orthopaedic Surgery | DX: S72.142D Displaced intertrochanteric fracture of left femur, subsequent encounter for closed fracture with routine healing (principal); M16.11 Unilateral primary osteoarthritis, right hip ==

== ENCOUNTER → 2022-06-21 | Outpatient (CLI) | payer MEDICARE, MEDICAID | LOC: M RAD 10:51 | PROVIDERS: ATTEND General Practice | DX: C34.12 Malignant neoplasm of upper lobe, left bronchus or lung (principal); J43.2 Centrilobular emphysema; I25.10 Atherosclerotic heart disease of native coronary artery without angina pectoris; I70.0 Atherosclerosis of aorta; K44.9 Diaphragmatic hernia without obstruction or gangrene; I77.810 Thoracic aortic ectasia ==

== ENCOUNTER → 2022-07-01 | Outpatient (CLI) | payer MEDICARE, MEDICAID | LOC: M ONCR 10:57 | PROVIDERS: ATTEND General Practice | DX: Z08 Encounter for follow-up examination after completed treatment for malignant neoplasm (principal); Z85.110 Personal history of malignant carcinoid tumor of bronchus and lung; J44.9 Chronic obstructive pulmonary disease, unspecified; Z79.52 Long term (current) use of systemic steroids; Z79.891 Long term (current) use of opiate analgesic; Z79.899 Other long term (current) drug therapy; Z87.891 Personal history of nicotine dependence; Z92.3 Personal history of irradiation ==

== ENCOUNTER 2022-08-16 20:12 | Observation (INO) | payer MEDICARE, MEDICAID ==
[~2022-08-16] VITALS: Ht 157.5 cm; Wt 56.8 kg
[2022-08-16] MEDS ORDERED: NS 1,000 ML IV ONE (20:35)
[2022-08-16] MEDS ORDERED: IPRATROPIUM 0.5MG/ALBUTEROL 2.5MG INH SOL UD 3ML (DUONEB) NEB ONE (20:45)
[2022-08-16 21:05] LABS: BASO % 0.7 % (0.0-1.0); EOS # 0.3 10^3/uL (0.0-0.5); EOS % 5.2 % (0.0-3.0); HEMATOCRIT 39.3 % (36.0-47.0); HEMOGLOBIN 12.5 g/dl (12.0-15.5); LYMPH % 16.6 % (24.0-44.0); MEAN CORPUSCULAR HEMOGLOBIN 29.8 pg (27.0-33.0); MEAN CORPUSCULAR HGB CONC 31.8 g/dl (32.0-36.5); MEAN CORPUSCULAR VOLUME 93.6 fl (80.0-96.0); MONO # 0.5 10^3/uL (0.0-0.8); NEUTROPHILS # 4.1 10^3/uL (1.5-8.5); NEUTROPHILS % 68.2 % (36.0-66.0); PLATELET COUNT, AUTOMATED 163 10^3/uL (150-450)
[2022-08-16] MEDS ORDERED: ISOVUE-370 76% 100ML VIAL As Ordered ONE (21:14)
[2022-08-16 21:16] LABS: INR 0.82; PROTHROMBIN TIME 11.5 SECONDS (12.5-14.5)
[2022-08-16 21:17] LABS: PARTIAL THROMBOPLASTIN TIME 30.9 SECONDS (24.8-34.2)
[2022-08-16 21:38] LABS: RSV AMPLIFICATION NEGATIVE (NEGATIVE)
[2022-08-16 21:52] LABS: CK-MB VALUE MASS 1.6 NG/ML (<3.6)
[2022-08-16 21:55] LABS: BLOOD UREA NITROGEN 25 MG/DL (9-23); CALCIUM LEVEL 8.6 MG/DL (8.3-10.6); CARBON DIOXIDE LEVEL 27 MMOL/L (20-31); CHLORIDE LEVEL 110 MMOL/L (98-107); CREATININE FOR GFR 0.85 MG/DL (0.55-1.30); GLOMERULAR FILTRATION RATE > 60.0 (>32); GLUCOSE, FASTING 104 MG/DL (74-106); POTASSIUM SERUM 4.3 MMOL/L (3.5-5.1); SODIUM LEVEL 143 MMOL/L (136-145)
[2022-08-16 21:58] LABS: CPK CREATINE PHOSPHOKINASE 63 U/L (34-145); MB/CK RELATIVE INDEX 2.53 (< OR =4)
[2022-08-16] MEDS ORDERED: CLOPIDOGREL 300 MG TAB (PLAVIX) PO STA (22:33)
[2022-08-16 22:34] VITALS: BP 177/90
[2022-08-16] MEDS ORDERED: HOME MED LIST COMPLETE! XX SCH (23:55)
[2022-08-16] MEDS ORDERED: MONT10TA97 PO (23:55)
[2022-08-16] MEDS ORDERED: DIPH50CA PO (23:55)
[2022-08-17] VITALS (13 sets, daily range): BP systolic 119–175; BP diastolic 61–88; O2SAT 95–99
[2022-08-17] MEDS ORDERED: MAALOX 30 ML SUSP *UDC PO PRN (00:15)
[2022-08-17] MEDS ORDERED: MOM 30ML SUSPENSION UDC PO PRN (00:15)
[2022-08-17] MEDS ORDERED: COMBIVENT RESPIMAT 100-20MCG INHALER 4GM INH PRN (00:30)
[2022-08-17 01:38] LABS: HEMOGLOBIN A1c 5.6 % (4.0-6.0)
[2022-08-17] MEDS: HEPARIN SOD (PORCINE) 5000UNITS/ML 1ML VIAL/SYRINGE SQ SCH ×3 (06:11→22:00)
[2022-08-17] MEDS ORDERED: NS 1,000 ML IV ONE (07:55)
[2022-08-17] MEDS: CLOPIDOGREL 75 MG TAB PO SCH (08:28)
[2022-08-17] MEDS: ALBUTEROL 90 MCG/ACT 8GM HFA INHALER INH PRN ×2 (12:22→20:11)
[2022-08-17] MEDS ORDERED: ASPIRIN 81MG ENTERIC TABLET PO SCH (21:00)
[2022-08-17] MEDS ORDERED: MONTELUKAST 10 MG TAB PO SCH (21:00)
[2022-08-17] MEDS ORDERED: ATORVASTATIN 20 MG TAB PO SCH (21:00)
[2022-08-17] MEDS ORDERED: diphenhydrAMINE 50MG CAP PO SCH (21:00)
[2022-08-17] MEDS: ACETAMINOPHEN TAB 650MG DOSE (2X325MG) PO PRN (22:49)
[2022-08-18] MEDS: ACETAMINOPHEN TAB 650MG DOSE (2X325MG) PO PRN (05:30)
[2022-08-18] MEDS: HEPARIN SOD (PORCINE) 5000UNITS/ML 1ML VIAL/SYRINGE SQ SCH (05:30)
[2022-08-18 06:00] VITALS: BP 148/68
[2022-08-18 06:51] LABS: BASO % 0.7 % (0.0-1.0); EOS # 0.3 10^3/uL (0.0-0.5); EOS % 6.1 % (0.0-3.0); HEMATOCRIT 39.9 % (36.0-47.0); HEMOGLOBIN 12.7 g/dl (12.0-15.5); LYMPH % 17.6 % (24.0-44.0); MEAN CORPUSCULAR HEMOGLOBIN 29.9 pg (27.0-33.0); MEAN CORPUSCULAR HGB CONC 31.8 g/dl (32.0-36.5); MEAN CORPUSCULAR VOLUME 93.9 fl (80.0-96.0); MONO # 0.4 10^3/uL (0.0-0.8); MONO % 7.7 % (2.0-8.0); NEUTROPHILS # 3.8 10^3/uL (1.5-8.5); NEUTROPHILS % 67.7 % (36.0-66.0); PLATELET COUNT, AUTOMATED 176 10^3/uL (150-450); RED BLOOD COUNT 4.25 10^6/uL (4.00-5.40); WHITE BLOOD COUNT 5.6 10^3/uL (4.0-10.0)
[2022-08-18 07:13] LABS: BLOOD UREA NITROGEN 13 MG/DL (9-23); CALCIUM LEVEL 8.5 MG/DL (8.3-10.6); CARBON DIOXIDE LEVEL 26 MMOL/L (20-31); CHLORIDE LEVEL 108 MMOL/L (98-107); CREATININE FOR GFR 0.75 MG/DL (0.55-1.30); GLOMERULAR FILTRATION RATE > 60.0 (>32); GLUCOSE, FASTING 87 MG/DL (74-106); POTASSIUM SERUM 4.2 MMOL/L (3.5-5.1); SODIUM LEVEL 142 MMOL/L (136-145)
[2022-08-18] MEDS: CLOPIDOGREL 75 MG TAB PO SCH (09:01)
[2022-08-18] MEDS ORDERED: CLOP75TA2 PO (10:26)
[2022-08-18] MEDS ORDERED: ATOR1TAB21 PO (10:26)
== END 2022-08-18 14:46 | disposition home or self-care (01) ==
LOC: M ED 20:12 → M ED INP 21:54 → UNDOADMIN 21:54 → INTOOBSV 23:16 → M ED INP 23:16 → M PCU 08-17 00:19 → M MSPAV 08-17 17:00
PROVIDERS: ADMIT Family Medicine; ATTEND General Practice
DX: G45.9 Transient cerebral ischemic attack, unspecified (principal); R20.2 Paresthesia of skin; R29.810 Facial weakness; C34.12 Malignant neoplasm of upper lobe, left bronchus or lung; Z92.3 Personal history of irradiation; J44.9 Chronic obstructive pulmonary disease, unspecified; Z79.52 Long term (current) use of systemic steroids; E78.5 Hyperlipidemia, unspecified; Z79.899 Other long term (current) drug therapy; Z87.891 Personal history of nicotine dependence; M81.0 Age-related osteoporosis without current pathological fracture
CPT/HCPCS: 36415; 70450; 70496; 70498; 70551; 71045; 80047; 80048; 82550; 82553; 83036; 84484; 85025; 85610; 85730; 87631; 92610; 93005; 93041; 93306; 93880; 94640; 94760; 96372; 96374; 96376; 97116; 97161; 97165; 99285; G0378; G0463; Q9967

== ENCOUNTER → 2022-09-01 | Outpatient (CLI) | payer MEDICARE, MEDICAID ==
[~2022-09-01] MED LIST changes: +ATOR1TAB21 PO; +CLOP75TA2 PO; +DIPH50CA PO; +MONT10TA97 PO
== END ==
LOC: M EKG 12:43
PROVIDERS: ATTEND Family Medicine
DX: G45.9 Transient cerebral ischemic attack, unspecified (principal)

== ENCOUNTER → 2022-09-11 | Outpatient (CLI) | payer MEDICARE, MEDICAID | LOC: M EKG 10:42 | PROVIDERS: ATTEND Family Medicine | DX: G45.9 Transient cerebral ischemic attack, unspecified (principal) ==

== ENCOUNTER → 2022-12-20 | Outpatient (CLI) | payer MEDICARE, MEDICAID | LOC: M RAD 12:49 | PROVIDERS: ATTEND General Practice | DX: C34.12 Malignant neoplasm of upper lobe, left bronchus or lung (principal); J43.2 Centrilobular emphysema; J47.9 Bronchiectasis, uncomplicated; J84.10 Pulmonary fibrosis, unspecified; I70.0 Atherosclerosis of aorta; I51.7 Cardiomegaly; I25.10 Atherosclerotic heart disease of native coronary artery without angina pectoris; K44.9 Diaphragmatic hernia without obstruction or gangrene; M51.34 Other intervertebral disc degeneration, thoracic region; E27.8 Other specified disorders of adrenal gland ==

== ENCOUNTER → 2022-12-29 | Outpatient (CLI) | payer MEDICARE, MEDICAID | LOC: M SOG 07:52 | PROVIDERS: ATTEND Orthopaedic Surgery | DX: S72.142D Displaced intertrochanteric fracture of left femur, subsequent encounter for closed fracture with routine healing (principal); Y93.9 Activity, unspecified; Y92.9 Unspecified place or not applicable ==

== ENCOUNTER → 2022-12-31 | Outpatient (CLI) | payer MEDICARE, MEDICAID | LOC: M ONCR 10:57 | PROVIDERS: ATTEND General Practice | DX: C34.12 Malignant neoplasm of upper lobe, left bronchus or lung (principal); J44.9 Chronic obstructive pulmonary disease, unspecified; Z71.2 Person consulting for explanation of examination or test findings; Z79.02 Long term (current) use of antithrombotics/antiplatelets; Z79.82 Long term (current) use of aspirin; Z79.899 Other long term (current) drug therapy; Z87.891 Personal history of nicotine dependence; Z92.3 Personal history of irradiation ==

== ENCOUNTER → 2023-04-28 | Outpatient (REF) | payer MEDICARE, MEDICAID ==
[2023-04-28 17:40] LABS: RSV AMPLIFICATION NEGATIVE (NEGATIVE)
== END ==
LOC: M LAB REF 16:18
PROVIDERS: ATTEND Internal Medicine
DX: Z86.16 Personal history of COVID-19 (principal)

== ENCOUNTER → 2023-04-29 | Outpatient (REF) | payer MEDICARE, MEDICAID | LOC: M LAB REF 12:34 | PROVIDERS: ATTEND Internal Medicine | DX: M81.0 Age-related osteoporosis without current pathological fracture (principal) ==

== ENCOUNTER → 2023-06-24 | Outpatient (CLI) | payer MEDICARE, MEDICAID ==
[~2023-06-24] MED LIST changes: -ASPI-161 PO; +ASPI-615 PO
== END ==
LOC: M RAD 11:08
PROVIDERS: ATTEND General Practice
DX: C34.12 Malignant neoplasm of upper lobe, left bronchus or lung (principal); R91.8 Other nonspecific abnormal finding of lung field

== ENCOUNTER → 2023-07-06 | Outpatient (CLI) | payer MEDICARE, MEDICAID ==
[~2023-07-06] MED LIST changes: +CEPH500C PO
== END ==
LOC: M ONCR 10:43
PROVIDERS: ATTEND General Practice
DX: C34.12 Malignant neoplasm of upper lobe, left bronchus or lung (principal); R91.8 Other nonspecific abnormal finding of lung field; S61.402A Unspecified open wound of left hand, initial encounter; L08.9 Local infection of the skin and subcutaneous tissue, unspecified; W54.8XXA Other contact with dog, initial encounter; Z71.2 Person consulting for explanation of examination or test findings; Z79.02 Long term (current) use of antithrombotics/antiplatelets; Z79.82 Long term (current) use of aspirin; Z79.899 Other long term (current) drug therapy; Z87.891 Personal history of nicotine dependence; Z92.3 Personal history of irradiation

== ENCOUNTER → 2023-09-30 | Outpatient (CLI) | payer MEDICARE, MEDICAID | LOC: M RAD 11:10 | PROVIDERS: ATTEND General Practice | DX: C34.12 Malignant neoplasm of upper lobe, left bronchus or lung (principal) ==

== ENCOUNTER → 2023-10-07 | Outpatient (CLI) | payer MEDICARE, MEDICAID | LOC: M ONCR 10:47 | PROVIDERS: ATTEND General Practice | DX: C34.12 Malignant neoplasm of upper lobe, left bronchus or lung (principal); Z71.2 Person consulting for explanation of examination or test findings; Z87.891 Personal history of nicotine dependence; Z92.3 Personal history of irradiation; Z79.02 Long term (current) use of antithrombotics/antiplatelets; Z79.899 Other long term (current) drug therapy; Z79.82 Long term (current) use of aspirin; Z79.51 Long term (current) use of inhaled steroids; Z86.73 Personal history of transient ischemic attack (TIA), and cerebral infarction without residual deficits ==

== ENCOUNTER → 2024-01-02 | Outpatient (CLI) | payer MEDICARE, MEDICAID | LOC: M PLARAD 13:21 | PROVIDERS: ATTEND General Practice | DX: C34.12 Malignant neoplasm of upper lobe, left bronchus or lung (principal) | CPT/HCPCS: 78815; A9552 ==

== ENCOUNTER → 2024-01-10 | Outpatient (CLI) | payer MEDICARE, MEDICAID | LOC: M ONCR 10:47 | PROVIDERS: ATTEND General Practice | DX: Z08 Encounter for follow-up examination after completed treatment for malignant neoplasm (principal); Z85.118 Personal history of other malignant neoplasm of bronchus and lung; Z79.82 Long term (current) use of aspirin; Z79.899 Other long term (current) drug therapy; Z87.891 Personal history of nicotine dependence; Z92.3 Personal history of irradiation ==

== ENCOUNTER → 2024-07-04 | Outpatient (CLI) | payer MEDICARE, MEDICAID ==
[~2024-07-04] MED LIST changes: -ADV500INH; -ADV500INH INH; +ADVA1AER10; +ADVA1AER10 INH
== END ==
LOC: M RAD 11:01
PROVIDERS: ATTEND General Practice
DX: C34.12 Malignant neoplasm of upper lobe, left bronchus or lung (principal)

== ENCOUNTER → 2024-07-19 | Outpatient (CLI) | payer MEDICARE, MEDICAID | LOC: M ONCR 09:39 | PROVIDERS: ATTEND General Practice | DX: Z08 Encounter for follow-up examination after completed treatment for malignant neoplasm (principal); B02.29 Other postherpetic nervous system involvement; J44.9 Chronic obstructive pulmonary disease, unspecified; Z85.118 Personal history of other malignant neoplasm of bronchus and lung; Z79.899 Other long term (current) drug therapy; Z87.891 Personal history of nicotine dependence; Z92.3 Personal history of irradiation ==

== ENCOUNTER → 2025-01-15 | Outpatient (CLI) | payer MEDICARE, MEDICAID ==
[~2025-01-15] MED LIST changes: -DIPH50CA PO; +DIPH50CA31 PO
== END ==
LOC: M RAD 10:28
PROVIDERS: ATTEND General Practice
DX: C34.12 Malignant neoplasm of upper lobe, left bronchus or lung (principal); J43.2 Centrilobular emphysema; I25.10 Atherosclerotic heart disease of native coronary artery without angina pectoris; R91.8 Other nonspecific abnormal finding of lung field

== ENCOUNTER → 2025-01-22 | Outpatient (CLI) | payer MEDICARE, MEDICAID | LOC: M ONCR 10:32 | PROVIDERS: ATTEND General Practice | DX: C34.12 Malignant neoplasm of upper lobe, left bronchus or lung (principal); Z87.891 Personal history of nicotine dependence; Z92.3 Personal history of irradiation; Z79.82 Long term (current) use of aspirin; Z79.899 Other long term (current) drug therapy; Z79.51 Long term (current) use of inhaled steroids ==

== ENCOUNTER → 2025-02-20 | Outpatient (CLI) | payer MEDICARE, MEDICAID | LOC: M EKG 13:11 | PROVIDERS: ATTEND Nurse Practitioner Family | DX: I49.3 Ventricular premature depolarization (principal) ==

== ENCOUNTER → 2025-04-10 | Outpatient (CLI) | payer MEDICARE, MEDICAID ==
[2025-04-10 17:40] LABS: BASO # 0.0 10^3/uL (0.0-0.2); BASO % 0.4 % (0.0-1.0); EOS # 0.2 10^3/uL (0.0-0.5); EOS % 3.4 % (0.0-3.0); LYMPH # 1.2 10^3/uL (1.5-5.0); LYMPH % 17.3 % (24.0-44.0); MONO # 0.5 10^3/uL (0.0-0.8); MONO % 7.8 % (2.0-8.0); NEUTROPHILS # 4.8 10^3/uL (1.5-8.5); NEUTROPHILS % 70.8 % (36.0-66.0); PLATELET COUNT, AUTOMATED 207 10^3/uL (150-450)
[2025-04-10 17:43] LABS: CALCIUM LEVEL 8.7 MG/DL (8.3-10.6); CARBON DIOXIDE LEVEL 30.0 MMOL/L (20-31); CHLORIDE LEVEL 102.0 MMOL/L (98-107); CREATININE FOR GFR 0.79 MG/DL (0.55-1.30); GLOMERULAR FILTRATION RATE 72.4 (>32); MAGNESIUM LEVEL 2.3 MG/DL (1.8-2.4); POTASSIUM SERUM 4.2 MMOL/L (3.5-5.1); SODIUM LEVEL 139.0 MMOL/L (136-145)
== END ==
LOC: M PLALAB 15:05
PROVIDERS: ATTEND Nurse Practitioner Family
DX: I42.9 Cardiomyopathy, unspecified (principal); I10 Essential (primary) hypertension; R06.02 Shortness of breath